=== PATIENT | female | born 1945 | race Hispanic/Latino ===

== ENCOUNTER 2017-06-14 20:48 | Emergency (ER) | payer OTHER ==
[~2017-06-14 20:48] MED LIST: AEC81 PO; CHOL200012 PO; ENAL10TA PO; OMEG1CAP43 PO; PRAV40TA3 PO; TRAM50TA4 PO; UBID200C18 PO
[2017-06-14] MEDS ORDERED: IBUPROFEN 800 MG TAB ONE (21:33)
[2017-06-14] MEDS ORDERED: BACLOFEN 10 MG TABLET PO ONE (21:33)
[2017-06-14 21:49] LABS: BASOPHILS % (AUTO) 0.4 % (0.0-5.0); EOSINOPHILS % (AUTO) 0.8 % (0.0-8.0); HEMATOCRIT 41.7 % (36-48); LYMPHOCYTES % (AUTO) 15.5 % (21.0-51.0); MEAN CORPUSCULAR HGB CONC 34.2 g/dL (32.0-36.0); MEAN CORPUSCULAR VOLUME 90.4 fL (79-99); MONOCYTES % (AUTO) 8.3 % (3.0-13.0); PLATELET COUNT (AUTO) 244 K/uL (130-400); RED BLOOD CELL COUNT(AUTO) 4.61 MIL/uL (4.00-5.50); RED CELL DISTRIBUTION WIDTH 14.2 % (11.0-15.5); WHITE BLOOD COUNT (AUTO) 11.8 K/uL (4.8-10.8)
[2017-06-14 21:53] LABS: CARBON DIOXIDE 27 mmol/L (21-32); CHLORIDE 100 mmol/L (101-111); CREATININE 0.5 mg/dL (0.5-1.5); GLOMERULAR FILTR. RATE CALC 130 mL/min (>60); GLUCOSE,RANDOM 113 mg/dL (70-105); POTASSIUM 3.7 mmol/L (3.5-5.1); SODIUM SERUM 137 mmol/L (136-145); UREA NITROGEN, BLOOD 12 mg/dL (7-18)
[2017-06-14 21:55] LABS: INR 0.93 (0.85-1.15); PARTIAL THROMBOPLASTIN TIME 26.4 SEC (26.3-35.5); PROTHROMBIN TIME 9.8 SEC (9.6-11.6)
[2017-06-14 22:07] LABS: ALANINE AMINOTRANSFERASE 25 U/L (12-78); ALBUMIN 3.7 g/dL (3.5-5.0); ASPARTATE AMINOTRANSFERASE 19 U/L (10-37); BILIRUBIN,TOTAL 0.2 mg/dL (0.2-1.0); CREATINE KINASE MB < 0.5 ng/mL (0.5-3.6); CREATINE KINASE, TOTAL 51 U/L (21-232); MYOGLOBIN 23 ng/mL (10-92); TOTAL PROTEIN, SERUM 7.6 g/dL (6.0-8.3); TROPONIN I < 0.04 ng/mL (0.00-0.06)
== END 2017-06-14 23:57 | disposition home or self-care (01) ==
LOC: EDH 20:51
DX: S20.02XA Contusion of left breast, initial encounter (principal); S20.229A Contusion of unspecified back wall of thorax, initial encounter; I10 Essential (primary) hypertension; V49.59XA Passenger injured in collision with other motor vehicles in traffic accident, initial encounter; Y93.89 Activity, other specified; Y92.89 Other specified places as the place of occurrence of the external cause; Y99.8 Other external cause status
CPT/HCPCS: 36415; 71046; 72070; 80053; 82550; 82553; 83874; 84484; 85025; 85610; 85730; 93005

== ENCOUNTER 2023-01-03 10:09 | Emergency (ER) | payer MEDICARE ==
[~2023-01-03] VITALS: Ht 144.8 cm; Wt 40.8 kg
[~2023-01-03 10:09] MED LIST changes: +ENAL-89 PO; -ENAL10TA PO; +FISH1CAP17 PO; -OMEG1CAP43 PO
[2023-01-03 11:05] VITALS: BP 146/62; PULSE 62; RESP 17; O2SAT 99
[2023-01-06] MEDS ORDERED: DONE5TAB33 PO (10:11)
[2023-01-06] MEDS ORDERED: ATOR40TA71 PO (10:11)
[2023-01-06] MEDS ORDERED: MULT-1296 PO (10:11)
== END 2023-01-03 11:05 | disposition home or self-care (01) ==
LOC: EDH 10:09
DX: Z02.89 Encounter for other administrative examinations (principal); E78.00 Pure hypercholesterolemia, unspecified; I10 Essential (primary) hypertension; Z88.8 Allergy status to other drugs, medicaments and biological substances; Z95.1 Presence of aortocoronary bypass graft; Z95.810 Presence of automatic (implantable) cardiac defibrillator
CPT/HCPCS: 36415; 71045; 82550; 83874; 83880; 84484; 93005

== ENCOUNTER 2023-01-07 08:33 | Day surgery (SDC) | payer MEDICARE ==
[2023-01-03 10:07] VITALS: BP 172/69; PULSE 60; RESP 21
[2023-01-03 10:13] LABS: BASOPHILS # (AUTO) 0.03 K/uL (0.00-0.20); BASOPHILS % (AUTO) 0.4 % (0.0-5.0); EOSINOPHILS # (AUTO) 0.13 K/uL (0.00-0.70); EOSINOPHILS % (AUTO) 1.7 % (0.0-8.0); HEMATOCRIT 42.7 % (36-48); IMMATURE GRANULOCYTE ABSOLUTE 0.02 K/uL (0-1); LYMPHOCYTES # (AUTO) 1.6 K/uL (1.0-4.8); LYMPHOCYTES % (AUTO) 21.2 % (21.0-51.0); MEAN CORPUSCULAR HEMOGLOBIN 30.1 pg (27.0-33.0); MEAN CORPUSCULAR HGB CONC 32.1 g/dL (32.0-36.0); MEAN CORPUSCULAR VOLUME 93.8 fL (79-99); MONOCYTES # (AUTO) 0.8 K/uL (0.1-1.0); MONOCYTES % (AUTO) 10.1 % (3.0-13.0); NEUTROPHILS # (AUTO) 5.1 K/uL (1.8-7.7); NEUTROPHILS % (AUTO) 66.3 % (40.0-77.0); PLATELET COUNT (AUTO) 224 K/uL (130-400); RED BLOOD CELL COUNT(AUTO) 4.55 MIL/uL (4.00-5.50); RED CELL DISTRIBUTION WIDTH 13.9 % (11.0-15.5); WHITE BLOOD COUNT (AUTO) 7.7 K/uL (4.8-10.8)
[2023-01-03 10:23] LABS: INR 0.93 (0.85-1.15); PROTHROMBIN TIME 10.8 SEC (9.6-11.6)
[2023-01-03 10:24] LABS: PARTIAL THROMBOPLASTIN TIME 28.9 SEC (26.3-35.5)
[2023-01-03 10:27] LABS: CREATININE 0.5 mg/dL (0.5-1.5)
[2023-01-07] VITALS (8 sets, daily range): BP systolic 115–160; BP diastolic 42–57; PULSE 60–64; RESP 12–16
[~2023-01-07] VITALS: Ht 121.9 cm; Wt 45.8 kg
[~2023-01-07 08:33] MED LIST changes: +ATOR40TA71 PO; -CHOL200012 PO; +DONE5TAB33 PO; -ENAL-89 PO; -FISH1CAP17 PO; +MULT-1296 PO; -PRAV40TA3 PO; -TRAM50TA4 PO; -UBID200C18 PO
[2023-01-07] MEDS ORDERED: LORA10TA7 PO (09:18)
[2023-01-07] MEDS ORDERED: ATOR10 PO (09:18)
[2023-01-07] MEDS ORDERED: FENTANYL CITRATE PF 50 MCG/1 ML 2ML VIAL ONE (12:02)
[2023-01-07] MEDS ORDERED: MIDAZOLAM HCL 1 MG/ML 2ML VIAL ONE (12:02)
[2023-01-07] MEDS ORDERED: LIDOCAINE HCL 1% MDV 50ML VIAL ONE (12:02)
[2023-01-07] MEDS ORDERED: CEFAZOLIN SODIUM 1 GM VIAL ONE (12:03)
[2023-01-07] MEDS ORDERED: BUPIVACAINE/PF 0.25% 30ML VIAL IJ ONE (12:03)
[2023-01-07] MEDS ORDERED: THROMBIN-JMI 5000 UNIT/VIAL TP ONE (12:34)
[2023-01-07] MEDS ORDERED: BACITRACIN 1 EACH PACKET TP ONE (12:41)
[2023-01-07] MEDS ORDERED: CEPH500B PO (12:54)
== END 2023-01-07 16:24 | disposition home or self-care (01) ==
LOC: DAH 08:33
PROVIDERS: ATTEND Internal Medicine Cardiovascular Disease
DX: Z45.010 Encounter for checking and testing of cardiac pacemaker pulse generator [battery] (principal); I49.5 Sick sinus syndrome; I48.0 Paroxysmal atrial fibrillation; I10 Essential (primary) hypertension; E78.5 Hyperlipidemia, unspecified; E11.43 Type 2 diabetes mellitus with diabetic autonomic (poly)neuropathy; I25.10 Atherosclerotic heart disease of native coronary artery without angina pectoris; Z79.01 Long term (current) use of anticoagulants; Z88.6 Allergy status to analgesic agent; Z90.710 Acquired absence of both cervix and uterus; Z98.890 Other specified postprocedural states; Z95.1 Presence of aortocoronary bypass graft; Z82.49 Family history of ischemic heart disease and other diseases of the circulatory system
CPT/HCPCS: 80048; 85025; 85610; 85730; 36415; 93005; 33228; C1785; J3010; J0690; J3490 ×3; J2250; A4215; A4222; A4221; A4663; A4216; A4606; A4223 ×3; 99156; 99157

== ENCOUNTER 2023-01-11 11:40 | Emergency (ER) | payer MEDICARE ==
[~2023-01-11] VITALS: Ht 142.2 cm; Wt 44.5 kg
[~2023-01-11 11:40] MED LIST changes: +ATOR10 PO; -ATOR40TA71 PO; +CEPH500B PO; +LORA10TA7 PO
[2023-01-11 14:44] LABS: BASOPHILS # (AUTO) 0.03 K/uL (0.00-0.20); BASOPHILS % (AUTO) 0.4 % (0.0-5.0); EOSINOPHILS % (AUTO) 2.6 % (0.0-8.0); HEMATOCRIT 42.5 % (36-48); IMMATURE GRANULOCYTE ABSOLUTE 0.03 K/uL (0-1); LYMPHOCYTES # (AUTO) 1.8 K/uL (1.0-4.8); LYMPHOCYTES % (AUTO) 23.8 % (21.0-51.0); MEAN CORPUSCULAR HEMOGLOBIN 30.2 pg (27.0-33.0); MEAN CORPUSCULAR HGB CONC 32.7 g/dL (32.0-36.0); MEAN CORPUSCULAR VOLUME 92.4 fL (79-99); MONOCYTES # (AUTO) 0.8 K/uL (0.1-1.0); MONOCYTES % (AUTO) 10.8 % (3.0-13.0); NEUTROPHILS # (AUTO) 4.7 K/uL (1.8-7.7); PLATELET COUNT (AUTO) 211 K/uL (130-400); RED CELL DISTRIBUTION WIDTH 14.1 % (11.0-15.5); WHITE BLOOD COUNT (AUTO) 7.6 K/uL (4.8-10.8)
[2023-01-11 15:22] LABS: ALBUMIN 3.3 g/dL (3.5-5.0); BILIRUBIN,TOTAL 0.3 mg/dL (0.2-1.0); CREATININE 0.5 mg/dL (0.5-1.5); TOTAL PROTEIN, SERUM 7.3 g/dL (6.0-8.3)
[2023-01-11 15:31] LABS: B-TYPE NATRIURETIC PEPTIDE 104 pg/mL (0-100)
[2023-01-11 17:41] VITALS: BP 131/47; PULSE 60; RESP 18; O2SAT 98
== END 2023-01-11 17:33 | disposition home or self-care (01) ==
LOC: EDH 11:40
DX: S20.219A Contusion of unspecified front wall of thorax, initial encounter (principal); E78.00 Pure hypercholesterolemia, unspecified; I10 Essential (primary) hypertension; Z04.9 Encounter for examination and observation for unspecified reason; Z95.0 Presence of cardiac pacemaker; X58.XXXA Exposure to other specified factors, initial encounter; Y93.89 Activity, other specified; Y92.89 Other specified places as the place of occurrence of the external cause; Y99.8 Other external cause status
CPT/HCPCS: 36415; 71045; 76604; 80053; 83605; 83880; 84484; 85025; 87040; 93005

== ENCOUNTER 2023-04-28 13:12 | Emergency (ER) | payer MEDICARE ==
[~2023-04-28] VITALS: Ht 142.2 cm; Wt 68.0 kg
[2023-04-28 13:55] LABS: BASOPHILS # (AUTO) 0.02 K/uL (0.00-0.20); BASOPHILS % (AUTO) 0.1 % (0.0-5.0); EOSINOPHILS # (AUTO) 0.01 K/uL (0.00-0.70); EOSINOPHILS % (AUTO) 0.1 % (0.0-8.0); HEMATOCRIT 41.3 % (36-48); IMMATURE GRANULOCYTE ABSOLUTE 0.09 K/uL (0-1); LYMPHOCYTES # (AUTO) 1.1 K/uL (1.0-4.8); LYMPHOCYTES % (AUTO) 7.2 % (21.0-51.0); MEAN CORPUSCULAR HEMOGLOBIN 30.1 pg (27.0-33.0); MEAN CORPUSCULAR HGB CONC 33.4 g/dL (32.0-36.0); MONOCYTES # (AUTO) 1.7 K/uL (0.1-1.0); MONOCYTES % (AUTO) 11.7 % (3.0-13.0); NEUTROPHILS # (AUTO) 11.8 K/uL (1.8-7.7); NEUTROPHILS % (AUTO) 80.3 % (40.0-77.0); PLATELET COUNT (AUTO) 221 K/uL (130-400); RED BLOOD CELL COUNT(AUTO) 4.59 MIL/uL (4.00-5.50); RED CELL DISTRIBUTION WIDTH 13.8 % (11.0-15.5); WHITE BLOOD COUNT (AUTO) 14.7 K/uL (4.8-10.8)
[2023-04-28 14:11] LABS: SARS-CoV-2, RNA, NAAT NEGATIVE SARS CoV-2 (NEGATIVE)
[2023-04-28 14:14] LABS: APPEARANCE,URINE CLOUDY (CLEAR); BILIRUBIN,URINE NEGATIVE (NEGATIVE); COLOR,URINE YELLOW (YELLOW); GLUCOSE, URINE (UA) NEGATIVE (NEGATIVE); KETONES,URINE 10 mg/dL (NEGATIVE); LEUKOCYTE ESTERASE ,URINE 500 Leu/uL (NEGATIVE); NITRATE,URINE NEGATIVE (NEGATIVE); OCCULT BLOOD,URINE LARGE (NEGATIVE); PROTEIN,URINE 70 mg/dL (NEGATIVE)
[2023-04-28 14:15] LABS: ADD UA MICROSCOPIC YES
[2023-04-28 14:17] LABS: INFLUENZA TYPE A Negative For Type A (NEGATIVE); INFLUENZA TYPE B Negative For Type B (NEGATIVE)
[2023-04-28 14:23] LABS: B-TYPE NATRIURETIC PEPTIDE 384 pg/mL (0-100)
[2023-04-28 14:26] LABS: BACTERIA,URINE MANY /HPF (None Seen); MUCUS,URINE FEW LPF (None Seen); RBC,URINE 26-50 /HPF (0-1); SQUAMOUS EPITHELIAL CELL,UR MOD /HPF (0-2); WBC,URINE 51-100 /HPF (0-1)
[2023-04-28 14:52] LABS: ALBUMIN 2.6 g/dL (3.5-5.0); BILIRUBIN,TOTAL 0.5 mg/dL (0.2-1.0); CREATININE 0.5 mg/dL (0.5-1.5); TOTAL PROTEIN, SERUM 7.2 g/dL (6.0-8.3)
[2023-04-28 14:55] LABS: POTASSIUM 2.9 mmol/L (3.5-5.1)
[2023-04-28] MEDS ORDERED: KCL 20 MEQ ERTAB PO ONE (15:00)
[2023-04-28] MEDS ORDERED: POTASSIUM BICARB/CIT AC 25 MEQ TABLET.EFF PO ONE (15:00)
[2023-04-28] MEDS ORDERED: CEFTRIAXONE 1G VIAL ONE (15:16)
[2023-04-28] MEDS ORDERED: CEFTRIAXONE 1G VIAL IM ONE (15:30)
[2023-04-28] MEDS ORDERED: CEFTRIAXONE 1G VIAL IVPB ONE (15:30)
[2023-04-28 16:51] LABS: CREATININE 0.5 mg/dL (0.5-1.5); POTASSIUM 3.4 mmol/L (3.5-5.1)
[2023-04-28] MEDS ORDERED: NITR100C4 PO (16:57)
[2023-04-28 22:03] VITALS: BP 127/48; PULSE 82; RESP 18; O2SAT 97
== END 2023-04-28 23:25 | disposition home or self-care (01) ==
LOC: EDH 13:12
DX: N30.00 Acute cystitis without hematuria (principal); E87.6 Hypokalemia; E86.0 Dehydration; R53.1 Weakness; I10 Essential (primary) hypertension; E78.00 Pure hypercholesterolemia, unspecified; Z20.822 Contact with and (suspected) exposure to COVID-19; Z79.82 Long term (current) use of aspirin; Z79.899 Other long term (current) drug therapy; Z90.710 Acquired absence of both cervix and uterus; Z98.890 Other specified postprocedural states; Z88.6 Allergy status to analgesic agent; Z88.8 Allergy status to other drugs, medicaments and biological substances
CPT/HCPCS: 99285; 71045; 87635; 84484; 80053; 83880; 85025; 87077; 87088; 87186; 87880; 87804 ×2; 81001; 36415; 73502; 96372; 93005 ×2; 80048; C9803; J0696 ×2

== ENCOUNTER 2023-05-17 01:36 | Emergency (ER) | payer MEDICARE ==
[~2023-05-17] VITALS: Ht 144.8 cm; Wt 51.3 kg
[~2023-05-17 01:36] MED LIST changes: +NITR100C4 PO
[2023-05-17 02:32] LABS: BASOPHILS # (AUTO) 0.02 K/uL (0.00-0.20); BASOPHILS % (AUTO) 0.2 % (0.0-5.0); HEMATOCRIT 39.4 % (36-48); IMMATURE GRANULOCYTE ABSOLUTE 0.04 K/uL (0-1); LYMPHOCYTES # (AUTO) 1.5 K/uL (1.0-4.8); LYMPHOCYTES % (AUTO) 14.9 % (21.0-51.0); MEAN CORPUSCULAR HEMOGLOBIN 29.8 pg (27.0-33.0); MEAN CORPUSCULAR HGB CONC 33.2 g/dL (32.0-36.0); MEAN CORPUSCULAR VOLUME 89.7 fL (79-99); NEUTROPHILS # (AUTO) 7.5 K/uL (1.8-7.7); NEUTROPHILS % (AUTO) 73.5 % (40.0-77.0); PLATELET COUNT (AUTO) 237 K/uL (130-400); RED BLOOD CELL COUNT(AUTO) 4.39 MIL/uL (4.00-5.50); RED CELL DISTRIBUTION WIDTH 14.5 % (11.0-15.5); WHITE BLOOD COUNT (AUTO) 10.2 K/uL (4.8-10.8)
[2023-05-17 02:41] LABS: CREATININE 0.6 mg/dL (0.5-1.5); POTASSIUM 3.7 mmol/L (3.5-5.1)
[2023-05-17 02:45] LABS: BILIRUBIN,TOTAL 0.2 mg/dL (0.2-1.0); TOTAL PROTEIN, SERUM 6.7 g/dL (6.0-8.3)
[2023-05-17] MEDS ORDERED: LISI10TA24 PO (02:50)
[2023-05-17] MEDS ORDERED: METF-910 PO (02:50)
[2023-05-17 08:13] VITALS: BP 136/55; PULSE 60; RESP 18; O2SAT 100
== END 2023-05-17 09:06 | disposition home or self-care (01) ==
LOC: EDH 01:36
DX: S00.03XA Contusion of scalp, initial encounter (principal); F03.90 Unspecified dementia, unspecified severity, without behavioral disturbance, psychotic disturbance, mood disturbance, and anxiety; E78.00 Pure hypercholesterolemia, unspecified; I10 Essential (primary) hypertension; Z79.84 Long term (current) use of oral hypoglycemic drugs; Z79.899 Other long term (current) drug therapy; Z88.5 Allergy status to narcotic agent; Z88.8 Allergy status to other drugs, medicaments and biological substances; Z91.041 Radiographic dye allergy status; Z95.0 Presence of cardiac pacemaker; W18.39XA Other fall on same level, initial encounter; Y93.89 Activity, other specified; Y92.89 Other specified places as the place of occurrence of the external cause; Y99.8 Other external cause status
CPT/HCPCS: 36415; 70450; 72125; 80053; 84484; 85025; 93005

== ENCOUNTER → 2023-12-15 | Outpatient (CLI) | payer OTHER ==
[~2023-12-15] MED LIST changes: +LISI10TA24 PO; +METF-910 PO
== END ==
LOC: RAH 09:39
PROVIDERS: ATTEND Internal Medicine Cardiovascular Disease
DX: J84.10 Pulmonary fibrosis, unspecified (principal); R06.00 Dyspnea, unspecified; R06.02 Shortness of breath
CPT/HCPCS: 71250

== ENCOUNTER → 2024-03-05 | Outpatient (CLI) | payer OTHER, MEDICARE ==
[~2024-03-05] MED LIST changes: +IOHEXOL 350 MG/ML 100ML INFUS..BTL IV ONE
== END | disposition home or self-care (01) ==
LOC: RAH 08:22
PROVIDERS: ATTEND Internal Medicine Cardiovascular Disease
DX: I25.10 Atherosclerotic heart disease of native coronary artery without angina pectoris (principal)
CPT/HCPCS: 75574; Q9967

== ENCOUNTER 2024-06-03 13:26 | Emergency (ER) | payer OTHER, MEDICAID ==
[~2024-06-03] VITALS: Ht 134.6 cm; Wt 54.4 kg
[~2024-06-03 13:26] MED LIST changes: +ALBU18HF7 IH; -ATOR10 PO; +ATOR20TA65 PO; +BUDE1AMP2 NEB; -CEPH500B PO; +DONE10TA43 PO; -DONE5TAB33 PO; +ESCI-8 PO; +FURO20TA4 PO; -IOHEXOL 350 MG/ML 100ML INFUS..BTL IV ONE; +MEMA5TAB16 PO; -METF-910 PO; -MULT-1296 PO; -NITR100C4 PO; +OLAN2.5T3 PO; +TRIA454O TP; +VITAD50000 PO
[2024-06-03] MEDS: IpraTROPium/alBUTERol SULFATE 3 ML SOLUTION IH ONE (13:45)
[2024-06-03 13:50] VITALS: PULSE 78; RESP 18
--- NOTE | 2024-06-03 14:31 | HMCIMG ---
CHEST 1VW REASON: SOB COMPARISON: 05/27/2024 FINDINGS: There is myocardial megaly. There is no pulmonary vascular congestion. There is elevated right hemidiaphragm, unchanged. Pacemaker and previous mean sternotomy appear unchanged. IMPRESSION: 1. Stable cardiomegaly, no acute finding.
[2024-06-03 14:36] LABS: MEAN CORPUSCULAR HEMOGLOBIN 29.4 pg (27.0-33.0); MEAN CORPUSCULAR HGB CONC 30.8 g/dL (32.0-36.0); MEAN CORPUSCULAR VOLUME 95.5 fL (79-99); PLATELET COUNT (AUTO) 201 K/uL (130-400); RED BLOOD CELL COUNT(AUTO) 4.19 MIL/uL (4.00-5.50); RED CELL DISTRIBUTION WIDTH 14.3 % (11.0-15.5); WHITE BLOOD COUNT (AUTO) 10.4 K/uL (4.8-10.8)
[2024-06-03 14:54] LABS: B-TYPE NATRIURETIC PEPTIDE 313 pg/mL (0-100)
[2024-06-03 14:59] LABS: INR 0.94 (0.85-1.15); PROTHROMBIN TIME 10.6 SEC (9.6-11.6)
[2024-06-03 15:00] LABS: PARTIAL THROMBOPLASTIN TIME 27.1 SEC (26.3-35.5)
--- NOTE | 2024-06-03 15:18 | ERN ---
General Chief Complaint: Shortness of Breath Stated Complaint: SOB Time Seen by MD: 13:28 Source: patient, EMS History of Present Illness Initial Comments Patient is a 78-year-old female brought in by EMS secondary to URI symptoms. Per patient she feels good does not know why they brought her. Per EMS patient has been having a cough and did have episodes of shortness of breath. Allergies: Coded Allergies: Iodine and Iodide Containing Produc (Unverified Allergy, Unknown, HIVES, 02/11/15) codeine (Unverified Allergy, Unknown, 01/06/23) Home Meds Reported Medications Donepezil HCl (Donepezil HCl) 10 Mg Tablet, 1 TAB PO HS for 30 Days, #30 TAB 0 Refills 05/22/24 Escitalopram Oxalate (Escitalopram Oxalate) 10 Mg Tablet, 1 TAB PO HS for 30 Days, #30 TAB 0 Refills 05/22/24 Memantine HCl (Memantine HCl) 5 Mg Tablet, 5 MG PO AM, TAB 05/22/24 Loratadine (Loratadine) 10 Mg Tablet, 1 TAB PO DAILY for allergy symptoms for 30 Days, #30 TAB 0 Refills 05/22/24 Cholecalciferol (Vitamin D3) 1,250 Mcg (87946 Unit) Cap, 1 CAP PO QWEEK for 28 Days, #4 CAP 0 Refills 25 Lisinopril (Lisinopril) 10 Mg Tablet, 1 TAB PO DAILY for 30 Days, #30 TAB 0 Refills 25 Albuterol Sulfate (Ventolin Hfa) 90 Mcg Hfa.aer.ad, 2 PUFF IH Q4HPRN PRN for wheezing for 30 Days, #18 GM 0 Refills 05/22/24 Atorvastatin Calcium (Atorvastatin Calcium) 20 Mg Tablet, 20 MG PO HS, TAB 25 Triamcinolone Acetonide (Triamcinolone Acetonide) 0.1 % Oint...g., 1 APPL TP BID for 7 Days, #80 GM 0 Refills apply to affected area(s) 05/22/24 Olanzapine (Zyprexa) 2.5 Mg Tablet, 1 TAB PO BID for 30 Days, #30 TAB 0 Refills 05/22/24 Budesonide (Budesonide) 1 Mg/2 Ml Ampul.neb, 1 VIAL NEB BID for 7 Days, #28 ML 0 Refills 05/22/24 Furosemide (Furosemide) 20 Mg Tablet, 1 TAB PO DAILY for 30 Days, #30 TAB 0 Refills 05/22/24 Aspirin (ASPIRIN 81 MG ECTAB) 81 Mg Ectab, 81 MG PO AM, TAB.EC 11/20/14 Past Medical History Past Medical History: Asthma, CAD, CHF, COPD, Dementia, Depression, High Smita sterol, Heart Disease, Hypertension, Schizophrenia Medical History Other: PACEMAKER, HX OF FALLS, PVD, ALZHEIMER'S, VENTRICULAR TACHYCARDIA Past Surgical History: Hysterectomy Surgical History Other: PACEMAKER REPLACED 01/07/23 Family History Family History: Negative Social History Social History: Negative, Lives with family Female( History) History: Not Applicable ROS Dictation CONSTITUTIONAL: No chills, no fever, no weakness, no diaphoresis, no malaise. HEAD/FACE: No signs of trauma. EENT: No eye pain, no blurred vision, no tearing, no double vision, no ear pain, no ear discharge, no nose pain, no nasal congestion, no throat pain, no throat swelling, no mouth pain. RESPIRATORY: No cough, no orthopnea, no SOB, no stridor, no wheezing. CARDIOVASCULAR: No chest pain, no edema, no palpitations, no syncope. GASTROINTESTINAL/ABDOMINAL: No abdominal pain, no constipation, no diarrhea, no nausea, no vomiting. GENITOURINARY: No abnormal discharge, no dysuria, no frequent urination, no hematuria. No complaints of pain in the genitals. MUSCULOSKELETAL: No back pain, no gout, no joint pain, no joint swelling, no muscle pain, no muscle stiffness, no neck pain. INTEGUMENTARY: No change in color, no change in hair/nails, no dryness, no lesion, no lumps, no rash. NEUROLOGICAL/PSYCH: No anxiety, not depressed, no emotional problem, no headache, no numbness, no pre-existing deficit, no history of seizures, no tremors, no weakness. HEMATOLOGIC/LYMPHATIC: Not anemic, no history of blood clots, no apparent bleeding, no bruising, glands not swollen. All Systems Negative, Except as Noted. Physical Exam Physical Exam Dictation VITAL SIGNS: Reviewed. GENERAL APPEARANCE: Alert, oriented x3, no acute distress, obese. HEAD AND FACE: Non-traumatic. EYES: PERRL, pink conjunctivas, eyelid no trauma, anterior chamber clear. EARS: Pinnas intact and no signs of trauma or erythema. Ear canals clear and n o discharge. TMs no erythema. NOSE: No discharge, no bleeding. OROPHARYNX: Mouth normal, teeth no caries, tongue pink. Pharynx clear, no erythema. Tonsils no exudates, no abscesses noted. Mucous membrane moist. NECK: Supple, non-tender, no thyromegaly, no masses, no JVD, no bruits. BREAST: Deferred. CHEST: No tenderness, no crepitus, no paradoxical movement, no retractions. LUNGS: Clear, well-ventilated, symmetric, no rales, no wheezing, no rhonchi, no stridor, good breath sounds bilaterally. HEART: Regular rate, regular rhythm, no murmur, no gallops. VASCULAR: No peripheral edema. ABDOMEN: Soft, positive bowel sounds, nondistended, no guarding, nontender, no rebound, no masses no hepatomegaly, no splenomegaly, no Conner's sign, no hernias. RECTAL: Deferred. GENITAL: Deferred. NEUROLOGICAL: Normal speech, gross motor function intact, gross sensory function intact. MUSCULOSKELETAL: Neck nontender, full range of motion, back nontender, full range of motion. EXTREMITIES: Nontender, full range of motion. SKIN: Color pink, dry, no turgor, no rash, no lacerations, no abrasions, no contusions. LYMPHATICS: Deferred. Results Laboratory and Microbiology Lab and Micro Result Laboratory Tests Test 06/03/24 14:18 06/03/24 15:21 White Blood Count 10.4 K/uL (4.8-10.8) Red Blood Count 4.19 MIL/uL (4.00-5.50) Hemoglobin 12.3 g/dL (12.0-16.0) Hematocrit 40.0 % (36-48) Mean Corpuscular Volume 95.5 fL (79-99) Mean Corpuscular Hemoglobin 29.4 pg (27.0-33.0) Mean Corpuscular Hemoglobin Concent 30.8 g/dL (32.0-36.0) L Red Cell Distribution Width 14.3 % (11.0-15.5) Platelet Count 201 K/uL (130-400) Mean Platelet Volume 10.6 fL (7.5-10.5) H Nucleated Red Blood Cells 0.0 % (0.0-0.19) Red Blood Cell Morphology See comments Prothrombin Time 10.6 SEC (9.6-11.6) Prothromb Time International Ratio 0.94 (0.85-1.15) Activated Partial Thromboplast Time 27.1 SEC (26.3-35.5) Magnesium Level 2.00 mg/dL (1.80-2.40) Total Creatine Kinase 27 U/L (21-232) # Troponin I High Sensitivity 8 ng/L (4-50) B-Type Natriuretic Peptide 313 pg/mL (0-100) H DU-Nxh-N-Type Natriuretic Peptide 574 pg/mL (0-450) H Influenza Type A Antigen Negative For Type A Influenza Type B Antigen Negative For Type B SARS-CoV-2, RNA, NAAT NEGATIVE SARS CoV-2 Labs Reviewed?: Yes EKG/XRAY/US/CT/MRI EKG Comment 06/03/2024 time 3:26 p.m. Ventricular rate 66 Sinus rhythm [place] [address] wave elevation [place] [address] IMAGING REPORT Signed PATIENT: ARMANDO TAYLOR MR#: [id number] : 1945 SEX: F AGE: 78 LOCATION: [facility] [address] ORDER [id number] STATUS: REG ER REPORT#: [id number] SERVICE [id number] REASON: SOB ORDERING PHYSICIAN: CLIVE GODOY MD PROCEDURE: CXR1VW - CHEST 1VW CHEST 1VW REASON: SOB COMPARISON: 05/27/2024 FINDINGS: There is myocardial megaly. There is no pulmonary vascular congestion. There is elevated right hemidiaphragm, unchanged. Pacemaker and previous mean sternotomy appear unchanged. IMPRESSION: 1. Stable cardiomegaly, no acute finding. DICTATED BY: IBRAHIMA TABARES MD DATE: 06/03/241427 ELECTRONICALLY SIGNED BY: IBRAHIMA TABARES MD DATE: 06/03/24 1431 MDM MDM: Differential diagnosis: URI, cough, flu, COVID, CHF Patient is a 78-year-old female sent over by senior care for evaluation of shortness of breath. Patient states he was not short of breath and does not know why she was here. Laboratory workup negative for acute findings. Chest x- ray did not disclose infiltrates already had acute findings. Patient has been stable throughout ER visit. Patient will be discharged with a diagnosis of well adult visit ED Course Orders Procedure Category Date Status Time Ipratropium/Albuterol PHA 06/03/24 Complete Neb (Duoneb) 14:00 Cbc Without LAB 06/03/24 Complete Differential 13:35 12 Lead Ekg Tracing- EKG 06/03/24 Logged Technical 13:35 Probnp LAB 06/03/24 Complete 13:35 B-Type Natriuretic LAB 06/03/24 Complete Peptide 13:35 Chest 1vw RAD 06/03/24 Resulted 13:35 Prothrombin Time With LAB 06/03/24 Complete INR 13:40 Magnesium LAB 06/03/24 Complete 13:40 Creatine Kinase, Total LAB 06/03/24 Complete 13:40 Troponin I High LAB 06/03/24 Complete Sensitivity 13:40 Partial LAB 06/03/24 Complete Thromboplastin Time 13:40 Covid Rna Naat LAB 06/03/24 Complete 13:40 Influenza Type A & B, LAB 06/03/24 Complete Rapid 13:40 Albuterol 0.083% PHA 06/03/24 Complete 2.5mg/3ml (Proventil 16:00 Methylprednisolone PHA 06/03/24 Complete Succ 125mg (Solu-Medr 16:00 Current Medications Medications (Trade) Dose Ordered Sig/Nikki Route PRN Reason Start Time Stop Time Status Last Admin Dose Admin Albuterol (DUOneb) 1 UDVIAL ONCE ONCE IH 06/03/24 14:00 06/03/24 14:01 DC 06/03/24 13:45 Albuterol Sulfate (Proventil 0.083% 2.5mg/3ml) 2 mg ONCE ONCE IH 06/03/24 16:00 06/03/24 16:01 DC 06/03/24 16:35 Methylprednisolone Sodium Succinate (Solu-medROL 125MG) 125 mg ONCE ONCE IVP 06/03/24 16:00 06/03/24 16:01 DC 06/03/24 16:12 Vital Signs Date Time Temp Pulse Resp B/P (MAP) Pulse Ox O2 Delivery O2 Flow Rate FiO2 06/03/24 17:05 99.1 74 24 116/54 97 Nasal Cannula* 2 28 06/03/24 16:41 78 18 06/03/24 15:24 99.1 64 30 108/37 93 Nasal Cannula* 2 28 06/03/24 13:50 78 18 06/03/24 13:40 98.1 76 20 140/70 96 Room Air* 0 21 06/03/24 13:28 98.1 76 20 140/70 96 Nasal Cannula* 2 28 06/03/24 13:28 98.1 76 20 140/70 96 Nasal Cannula 2.0 DX & DISP Disposition: Discharge Departure Impression: Primary Impression: Well adult exam Condition: Stable Additional Instructions: FOLLOW-UP WITH PRIMARY CARE PROVIDER IN 1 TO 2 DAYS. TAKE MEDICATIONS DIRECTED HERE IN THE EMERGENCY ROOM. OKAY TO CONTINUE HOME MEDICATIONS UNLESS OTHERWISE DISCUSSED DURING YOUR VISIT IN THE EMERGENCY ROOM TODAY. RETURN TO YOUR NEAREST EMERGENCY ROOM IF SYMPTOMS WORSEN OR IF THERE IS NO IMPROVEMENT. CALL 911 IF YOU NEED IMMEDIATE ASSISTANCE. TAKE TYLENOL [id number] NEEDED AND IF NO CONTRAINDICATIONS ARE PRESENT. INCREASE ORAL HYDRATION. A WOUND CULTURE OR URINE CULTURE WAS ORDERED HERE IN THE EMERGENCY ROOM DEPARTMENT PLEASE FOLLOW-UP WITH PRIMARY CARE PROVIDER AND ADVISE THEM TO GET REPEAT PORTS FROM OUR FACILITY. IF YOU HAD ANY JACEY WRAP/SPLINTS THAT WERE APPLIED HERE, PLEASE DO NOT REMOVE THEM UNTIL YOU SEE YOUR PRIMARY CARE OR SPECIALTY. Referrals: Referrals: CLIVE DEVINE (PCP) Time of Disposition: 17:25 CLIVE GODOY MD Jun 03, 2024 15:18
[2024-06-03 16:08] LABS: SARS-CoV-2, RNA, NAAT NEGATIVE SARS CoV-2 (NEGATIVE)
[2024-06-03] MEDS: Solu-medROL 125MG VIAL IVP ONE (16:12)
[2024-06-03 16:14] LABS: INFLUENZA TYPE A Negative For Type A (NEGATIVE); INFLUENZA TYPE B Negative For Type B (NEGATIVE)
[2024-06-03] MEDS: ALBUTEROL 0.083% 2.5 MG/3 ML INH IH ONE (16:35)
[2024-06-03 16:41] VITALS: PULSE 78; RESP 18
--- NOTE | 2024-06-03 18:03 | NUR ---
CALLED [facility] TO SET UP TRANSPORT FOR PT.
[2024-06-03 18:28] VITALS: BP 110/42; PULSE 70; RESP 22; TEMP 98.2; O2SAT 96
--- NOTE | 2024-06-03 20:29 | EKG ---
[facility] Test Date: 2024-06-03 Test Time: 15:26:52 Pat Name: ARMANDO TAYLOR Department: [facility] Room: Gender: F [employer] Operator: [id number] : 1945 Requested By: CLIVE GODOY Order Number: [id number] Reading MD: Abhinav Horne Measurements Intervals [place] Rate: 66 P: -24 PA: 147 QRS: -17 QRSD: 82 T: 139 QT: 413 QTc: 433 Interpretive Statements Sinus rhythm Ventricular premature complex Low voltage, precordial leads Consider anterior infarct Abnormal T, consider ischemia, lateral leads Compared to ECG 05/22/2024 22:28:01 Ventricular premature complex(es) now present Myocardial infarct finding now present T-wave abnormality now present Possible ischemia now present Electronically Signed On 06-05-2024 07:55:44 [employer] SUPER[employer] by Abhinav Horne Please click the below link to view image of tracing.
== END 2024-06-03 18:34 ==
LOC: EDH 13:26
DX: R06.02 Shortness of breath (principal); R05.9 Cough, unspecified; E78.00 Pure hypercholesterolemia, unspecified; F02.83 Dementia in other diseases classified elsewhere, unspecified severity, with mood disturbance; F20.9 Schizophrenia, unspecified; F32.A Depression, unspecified; I11.0 Hypertensive heart disease with heart failure; I50.9 Heart failure, unspecified; I25.10 Atherosclerotic heart disease of native coronary artery without angina pectoris; Z79.899 Other long term (current) drug therapy; Z88.5 Allergy status to narcotic agent; Z88.8 Allergy status to other drugs, medicaments and biological substances; Z90.710 Acquired absence of both cervix and uterus; Z91.041 Radiographic dye allergy status; Z95.0 Presence of cardiac pacemaker; Z20.822 Contact with and (suspected) exposure to COVID-19
CPT/HCPCS: 99284; 83880 ×2; 82550; 83735; 84484; 85027; 85610; 85730; 87804 ×2; 36415; 87635; 71045; 96374; 93005; 94640; J2919; 99283